=== PATIENT | female | born 1990 | race Caucasian/White ===

== ENCOUNTER 2019-03-01 13:23 | Outpatient (RCR) | payer OTHER, SELFPAY ==
[2019-02-23 13:49] LABS: Hematocrit 34.6 % (37.0-47.0); Hemoglobin 11.5 g/dL (12.0-15.0)
[2019-02-23 13:59] LABS: Glucose 1 Hour PP 50gm Dose 110 mg/dL
[2019-02-23 14:38] LABS: HIV 1/2 Ab P24 Ag Result Negative (Negative)
[2019-02-25 11:45] LABS: Rapid Plasma Reagin Non-Reactive (NonReactive)
[2019-03-03] MEDS: RHO(D) IMMUNE GLOBULIN 300 MCG SYRINGE IM (08:41)
== END 2019-05-24 23:59 | disposition home or self-care (01) ==
LOC: ANHLAB 13:23
PROVIDERS: Visit Provider Obstetrics & Gynecology
DX: Z36.89 Encounter for other specified antenatal screening (principal); Z29.13 Encounter for prophylactic Rho(D) immune globulin; O36.0990 Maternal care for other rhesus isoimmunization, unspecified trimester, not applicable or unspecified; Z3A.00 Weeks of gestation of pregnancy not specified
CPT/HCPCS: 36415; 82947; 85014; 85018; 86592; 86703; 90384; 96372; G0432; J2790

== ENCOUNTER 2019-05-03 14:07 | Outpatient (CLI) | payer OTHER, SELFPAY ==
[2019-05-03 15:21] LABS: Hematocrit 35.9 % (37.0-47.0); Mean Corpuscular HGB Conc 33.4 g/dl (32-36); Mean Corpuscular Hemoglobin 28.9 pg (26-34); Mean Corpuscular Volume 86.5 fl (80-100); Mean Platelet Volume 11.1 fl (7.4-10.4); Platelet Count Result 213 k/mm3 (150-375); Red Blood Count 4.15 M/mm3 (4.2-5.4); Red Cell Distribution Width 13.2 % (11.5-14.5); White Blood Count 9.8 K/mm3 (4.5-10.0)
[2019-05-04 10:29] LABS: Rapid Plasma Reagin Non-Reactive (NonReactive)
== END 2019-05-03 14:08 | disposition home or self-care (01) ==
PROVIDERS: PCP Physician Assistant; Visit Provider Obstetrics & Gynecology
DX: Z34.93 Encounter for supervision of normal pregnancy, unspecified, third trimester (principal); Z3A.00 Weeks of gestation of pregnancy not specified
CPT/HCPCS: 36415; 85027; 86592; 86850; 86880; 86900; 86901; 86902

== ENCOUNTER 2019-05-04 10:01 | Inpatient (IN) | payer OTHER, SELFPAY ==
--- NOTE | 2019-04-24 13:58 | PC.NURSE ---
VERIFIED WITH OR SCHEDULE AND PATIENT -C/S ON 05/04/19 AT 1200 PATIENT GIVEN REQUISITION FOR LAB DRAW ON 05/03/19 PATIENT STATES BABY HAS SLIGHT ABNORMAL BLOOD FLOW IN THE BRAIN ACCORDING TO LAST ULTRASOUND DONE
[2019-05-04] VITALS (52 sets, daily range): BP systolic 51–125; BP diastolic 34–82; PULSE 63–94; RESP 14–18; TEMP 35.3–36.4; O2SAT 95–100; BMI 40.8
--- NOTE | 2019-05-04 10:01 | LDADM ---
This patient, Sarita Jacob, was admitted to Labor/Delivery/Recovery 119 on 05/04/19 at 10:01. Plans for labor, pain management and were discussed with patient. Patient/family oriented to hospital policies and general routines including ID bracelet, bed and alarms, visiting hours, pain management, procedures, bathroom and other care routines, personal items, smoking policy, room service/diet and guest tray routines, infant security routines, and visiting hours. Patient/Family are encouraged to report perceived risks to care and to ask questions if they do not understand what they are told or what they should do. See OBIX for further documentation.
[2019-05-04] MEDS: LACTATED RINGERS 1,000 ML 125 ML IV CONT (10:54)
--- NOTE | 2019-05-04 11:19 | WPDANESEPPF ---
Anes - Initial Pre Proc Eval Procedure: Operation Date: 05/04/19 12:00 Proposed Procedures p Repeat Section - Ileana Kennedy MD Date/Time: 05/04/19 11:19 Surgeon: Ileana Kennedy MD Pre Op Diagnosis: Scheduled Patient Data Age: 28 Gender: F Height: 1.52 m Weight: 95 kg Last Vital Signs Pulse 90 05/04/19 11:16 BP 123/81 05/04/19 11:16 Allergies Allergy/AdvReac Type Severity Reaction Status Date / Time No Known Allergies Allergy Unknown Verified 04/24/19 13:37 Home Medications Medication Instructions Recorded Confirmed Type PNV cmb#95-ferrous fumarate-FA 1 tablet PO DAILY 04/24/19 04/24/19 History [] Patient hx anesthesia problems: none Family hx anesthesia problems: none PMFSH Past Medical History Medical History (Updated 05/03/19 @ 10:16 by Garett Alvares DO) Migraine Surgical History Surgical History (Updated 05/03/19 @ 10:16 by Garett Alvares DO) History of x4 Family History Family History (Updated 04/24/19 @ 13:39 by Torrie Roa RN) Sibling Diabetes mellitus Grandparent Cancer Social History Social History Smoking status: Never smoker Second hand tobacco smoke exposure: Yes Substance use: never Spiritual care concerns: No Anes - Eval Final PreProcedure Day of Procedure 05/04/19 11:19 Patient weight: morbidly obese Heart: regular rate and rhythm Lungs: clear to auscultation and normal air movement Airway: Mallampati scale class II Neurological: alert and oriented Last oral intake: >/= 8 hours ASA classification: III Emergent: no Anesthetic plan: proceed Anesthesia type and monitoring: regional spinal and standard monitoring Informed Consent: The patient's anesthetic plan and its attendant risks and benefits were discussed with the patient/family/POA. Questions were solicited and answers provided to the satisfaction of the patient/family/POA.
--- NOTE | 2019-05-04 11:48 | PM.IMHP ---
H&P: HPI History of Present Illness Chief complaint: Scheduled Narrative: Sarita Jacob is a 28 year old multiparous female at 37 weeks gestation with 3 prior deliveries. She presents for repeat delivery. She has a growth restricted infant. She has been monitored closely. She has been monitored closely. It was recommended that she would be delivered at 37 weeks. She denies any loss of fluid, vaginal bleeding, contractions. She reports good movement. She denies any headache or blurry vision. Review of Systems Constitutional: Constitutional: Reports no additional constitutional complaints, Denies fatigue, Denies headache(s), Denies lethargy and Denies weakness Eyes: Eyes: Reports no additional eye complaints, Denies blurry vision and Denies photophobia ENT: Reports as per HPI, Denies headache(s) and Denies neck pain Cardiovascular: Cardiovascular: Denies chest pain, Denies diaphoresis, Denies leg edema, Denies palpitations and Denies dyspnea Respiratory: Respiratory: Denies hemoptysis, Denies dyspnea and Denies wheezing Gastrointestinal: Gastrointestinal: Denies abdominal pain, Denies melena, Denies bloating, Denies hematochezia, Denies nausea and Denies vomiting Genitourinary: Genitourinary: Reports no additional female genitourinary complaints Musculoskeletal: Musculoskeletal: Denies joint swelling, Denies neck pain, Denies numbness and Denies stiffness Neurologic: Denies Abnormal speech present, Denies confusion, Denies headache(s), Denies numbness and Denies weakness Psychiatric: Psychiatric: Denies anxiety, Denies confusion, Denies depression, Denies homicidal ideation and Denies suicidal ideation Endocrine: Endocrine: Denies fatigue and Denies palpitations Allergic/Immunologic: Allergic/Immunologic: Denies wheezing FOR[facility]LY [facility] Past Medical History Medical History (Updated 05/04/19 @ 11:58 by Ileana Kennedy MD) Migraine Surgical History Surgical History (Updated 05/04/19 @ 11:58 by Ileana Kennedy MD) History of x4 Family History Family History (Updated 04/24/19 @ 13:39 by Torrie Roa RN) Sibling Diabetes mellitus Grandparent Cancer Social History Social History Smoking status: Never smoker Second hand tobacco smoke exposure: Yes Substance use: never Spiritual care concerns: No Meds Home Medications and Allergies Home Medications Medication Instructions Recorded Confirmed Type PNV cmb#95-ferrous fumarate-FA 1 tablet PO DAILY 04/24/19 04/24/19 History [] Allergies Allergy/AdvReac Type Severity Reaction Status Date / Time No Known Allergies Allergy Unknown Verified 04/24/19 13:37 Vital Signs Vital Signs - 24 hr 05/04/19 10:36 05/04/19 10:46 05/04/19 11:01 Pulse Rate 94 94 87 Blood Pressure 123/71 118/68 125/82 05/04/19 11:16 Pulse Rate 90 Blood Pressure 123/81 Exam Const: General: healthy appearing, comfortable and no acute distress; No confusion Orientation/consciousness: No confusion Eyes: Direct Ophthalmoscopy: No photophobia Resp: Auscultation: clear to auscultation bilaterally, no rales, no rhonchi and no wheezes Cardio: Rate: regular rate Heart sounds: no click, no murmurs and no rubs GI: Inspection: non-distended GI Palp: No abdominal tenderness Auscultation: normal bowel sounds Neuro: General: No confusion Speech: No Abnormal speech present Extrem: General: normal to inspection, no pedal edema and no calf tenderness Assessment and Plan Assessment and plan (1) IUGR (intrauterine growth restriction): Status: Acute (2) Previous delivery, antepartum condition or complication: Code(s): O34.219 - Maternal care for unspecified type scar from previous delivery Status: Acute Assessment and Plan: This patient is a 28-year-old multiparous female 37 weeks gestation with multiple previous deliveries. She has an IUGR infan
[2019-05-04] MEDS: LACTATED RINGERS 1,000 ML 999 ML IV CONT ×2 (11:52→12:30)
[2019-05-04] MEDS: ceFAZolin 2 GM/D5W 50 ML 2 GM/50 ML BAG IVPB (11:58)
--- NOTE | 2019-05-04 13:02 | P.OP_ITS ---
Procedure Note - Detailed Date of procedure: 05/04/19 Pre-op diagnosis: Scheduled Previous delivery, IUGR, Post-op diagnosis: same (With breech presentation) Procedure performed: Repeat low-transverse delivery Description of procedure: The patient was taken the operating room. She was prepped and draped in the dorsal supine position with leftward tilt after induction of spinal anesthetic. When anesthesia was found to be adequate a low- transverse skin incision was made and carried down to the level the fascia with the knife. The fascial incision was made at the midline with a scalpel. The fascial incision was extended laterally with Redd scissors. The fascia was tented upward superior and inferior with Evan clamps. The rectus muscles were dissected off bluntly. The rectus muscles at the midline. The preperitoneal fat was dissected bluntly at the superior aspect of the separate the rectus muscles. The peritoneal cavity was entered bluntly in the same area. The peritoneal incision was extended superior and inferior with good position of bladder. Bladder blade was inserted. A low-transverse incision was made on the uterus with the scalpel. It was carried down the level of the amniotic cavity with a knife. The amniotic cavity bluntly. The uterine incision was made laterally with blunt traction. The infant was delivered. The cord was clamped and cut. The was handed off to waiting pediatric staff. Cord bloods were obtained. The placenta was removed manually. The uterus was exteriorized. Uterus cleared of all clots and debris. Uterus closed in 0 Vicryl in a running locked fashion. An imbricating layer of 0 Vicryl was also placed on the to bolster the closure. Fallopian tube was grasped in the ampullary region with a Mary. It was raised away from the accompanying vein. A window was created in the broad ligament in this area of the tube. 0 Vicryl was used to ligate the proximal distal ends of the skeletonize region of the tube. The segment of the tube was resected with scissors. The cut surfaces were cauterized. On the contralateral side the procedure was performed identically. The uterus was returned to the abdomen. The gutters were cleared of all clots and debris. The fascia was closed 0 Vicryl in a running fashion. Subcutaneous tissue was irrigated and bleeding areas were cauterized. The skin was closed with subcuticular absorbable margi. The incision was covered with derma avila. The patient tolerated the procedure well. She was taken recovery room stable condition. Sponge, lap, needle counts were correct x2. Anesthesia: spinal Surgeon: Ileana Kennedy MD Estimated blood loss (mL): 400 Drains: No Packing: No Pathology: none sent Complications: No immediate complications Condition: stable Disposition: floor Findings: Bicornuate uterus, normal maternal anatomy. Thickened scar tissue in the abdominal wall, adhesions between the uterus and the anterior abdominal wall. Small for gestational age infant with typical Apgars
--- NOTE | 2019-05-04 14:00 | PC.NURSE ---
BP RETAKEN WITH PT'S ARM STRAIGHTENED. PT DENIES ANY SYMPTOMS OF HYPOTENSION. PREVIOUS BPS TAKEN WITH PT'S ARM BENT DUE TO .
[2019-05-04] MEDS: LORATADINE 10 MG TABLET PO (15:04)
--- NOTE | 2019-05-04 15:30 | PC.NURSE ---
Patient transferred to post room #291 via wheelchair. Support person present. Oriented to unit, room, information board, rooming in, admission packet and security measures. Patient verbalizes understanding.
--- NOTE | 2019-05-04 17:20 | PCDIET ---
Offered to assist mother with , Reported blood glucose and advised should start feeding as soon as possible and will need to be supplemented after . Mother wishes to be bottle fed now.
[2019-05-05] MEDS: ACETAMINOPHEN 325 MG TABLET 650 MG PO (02:11)
[2019-05-05 03:05] VITALS: BP 109/68; PULSE 98; RESP 16; TEMP 36.6
[2019-05-05 05:55] LABS: Basophils Percent Auto 0.4 % (0.2-1.2); Eosinophils Absolute Auto 0.1 K/mm3 (0-0.3); Eosinophils Percent Auto 1.3 % (0-4.4); Hematocrit 31.3 % (37.0-47.0); Hemoglobin 10.4 g/dL (12.0-15.0); Immature Granulocyte Absolute 0.02 K/mm3 (0.00-0.031); Immature Granulocyte Percent A 0.2 % (0-0.5); Lymphocytes Absolute Auto 1.46 K/mm3 (0.9-3.2); Lymphocytes Percent Auto 17.9 % (18.3-44.2); Mean Corpuscular HGB Conc 33.2 g/dl (32-36); Mean Corpuscular Hemoglobin 28.5 pg (26-34); Mean Corpuscular Volume 85.8 fl (80-100); Monocytes Absolute Auto 0.5 K/mm3 (0.1-0.6); Monocytes Percent Auto 6.4 % (2.6-8.5); Neutrophils Percent Auto 73.8 % (45.5-73.1); Platelet Count Result 162 k/mm3 (150-375); Red Blood Count 3.65 M/mm3 (4.2-5.4); Red Cell Distribution Width 13.2 % (11.5-14.5); White Blood Count 8.2 K/mm3 (4.5-10.0)
[2019-05-05] MEDS: IBUPROFEN 600 MG TABLET PO ×3 (06:12→22:18)
[2019-05-05] MEDS: SIMETHICONE 80 MG TAB.CHEW PO ×5 (06:12→22:18)
[2019-05-05 08:00] VITALS: BP 114/67; PULSE 91; RESP 16; RESP 18; TEMP 36.4; O2SAT 100
--- NOTE | 2019-05-05 08:13 | WPDANLDPN2 ---
Anes-Prog Note L&D Date/Time: 05/05/19 08:13 Comfortable throughout: section Neuraxial method: spinal Epidural/Spinal procedure site: clean & non-tender Neuro status: Neuro function grossly intact. Cardiovascular status: normal Respiratory status: normal Airway patency: baseline Mental status: baseline Post-Op hydration status: normal Vital Signs: Last Vital Signs Temp 97.9 F 05/05/19 03:05 Pulse 98 05/05/19 03:05 Resp 16 05/05/19 03:05 BP 109/68 05/05/19 03:05 Pulse Ox 98 05/04/19 20:08 I/O: Intake & Output 05/04/19 05/05/19 05/05/19 23:59 07:59 15:59 Intake Total 800 Output Total 300 600 Balance 500 -600 Patient feedback: Patient satisfied with anesthetic care.
--- NOTE | 2019-05-05 08:14 | WPDANLDNPN2 ---
Anes-Prog Note L&D-Neuraxial Date/Time: 05/05/19 08:14 Neuraxial medications: intrathecal PF morphine Opiod-related complaints: none Patient feedback: Patient satisfied with post-operative pain management.
[2019-05-05] MEDS: MULTIVIT/MIN/PREN/FOL AC/IRON TABLET 1 TAB PO (09:16)
[2019-05-05] MEDS: DOCUSATE SODIUM 100 MG CAPSULE PO ×2 (09:16→17:55)
[2019-05-05] MEDS: POLYSACCHARIDE IRON COMPLEX 150 MG CAPSULE PO (09:16)
[2019-05-05 11:40] VITALS: BP 125/73; PULSE 95; RESP 16; TEMP 36.4; O2SAT 99
[2019-05-05 12:00] VITALS: BP 110/68; PULSE 74; RESP 16; RESP 18; TEMP 36.8; O2SAT 100
--- NOTE | 2019-05-05 12:39 | P.PNOB_ITS ---
OB - PN: Subj Subjective Date/time seen: 05/05/19 12:39 Patient comments: no complaints, pain well controlled and tolerating diet OB - PN: Obj Data Labs CBC & Chem 7: 05/05/19 05:14 Labs: Laboratory Results - last 24 hr 05/05/19 05:14 WBC 8.2 RBC 3.65 L Hgb 10.4 L Hct 31.3 L MCV 85.8 MCH 28.5 MCHC 33.2 RDW 13.2 Plt Count 162 MPV 11.0 H Immature Gran % (Auto) 0.2 Neut % (Auto) 73.8 H Lymph % (Auto) 17.9 L [place] % (Auto) 6.4 Eos % (Auto) 1.3 Baso % (Auto) 0.4 Lymph # (Auto) 1.46 [place] # (Auto) 0.5 Eos # (Auto) 0.1 Baso # (Auto) 0.0 Abs Immat Gran (auto) 0.02 Absolute Neuts (auto) 6.0 Absolute Nucleated RBC 0.0 Nucleated RBC % 0.0 OB - PN A/P Plan day: 1 Comments: Post Op LTCS - no problems, routine recovery Time Spent With Patient Time: Total time spent is greater than 50% in coordination of care (as documented) at patient's floor/unit and/or counseling patient: Exam Const: General: cooperative, healthy appearing, comfortable and no acute distress Resp: Auscultation: no crackles, no rales, no rhonchi and no wheezes Cardio: Rhythm: regular rhythm Heart sounds: no click and no murmurs GI: Inspection: non-distended Auscultation: normal bowel sounds Extrem: General: normal to inspection, no pedal edema and no calf tenderness
[2019-05-05 19:10] VITALS: BP 110/70; PULSE 90; RESP 16; TEMP 36.7
[2019-05-06] MEDS: SIMETHICONE 80 MG TAB.CHEW PO (05:23)
[2019-05-06] MEDS: IBUPROFEN 600 MG TABLET PO ×2 (05:23→12:52)
--- NOTE | 2019-05-06 07:48 | PM.OBPNVD ---
OB - PN: Subj Subjective Date/time seen: 05/06/19 07:48 Patient comments: no complaints, pain well controlled, tolerating diet, flatus present and other (Ambulating and voiding without problems. Lochia similar to menses) baby status: doing well OB - PN: Obj Data Labs CBC & Chem 7: 05/05/19 05:14 OB - PN A/P Plan day: 2 (s/p C section, doing well) Plan: routine care Time Spent With Patient Time: Total time spent is greater than 50% in coordination of care (as documented) at patient's floor/unit and/or counseling patient: Exam Const: General: no acute distress Resp: Auscultation: clear to auscultation bilaterally Cardio: Rate: regular rate Rhythm: regular rhythm GI: Inspection: non-distended, incision (Intact without erythema, drainage, or induration) and other (Fundus firm and nontender below umbilicus) GI Palp: Yes abdominal tenderness (appropriate) and Yes Soft to palpation Extrem: General: no edema
[2019-05-06] MEDS: DOCUSATE SODIUM 100 MG CAPSULE PO (08:19)
[2019-05-06] MEDS: MULTIVIT/MIN/PREN/FOL AC/IRON TABLET 1 TAB PO (08:19)
[2019-05-06 08:30] VITALS: BP 107/68; PULSE 89; RESP 14; TEMP 36.7; O2SAT 97
[2019-05-06] MEDS: TETANUS,DIPHTHERIA,AC PERTUSSIS ADULT 0.5 ML (ADACEL) IM (14:47)
[2019-05-07 10:17] VITALS: BP 131/88; PULSE 100; RESP 18
--- NOTE | 2019-06-04 10:45 | PM.OBDSVD ---
DS: Diagnosis Admitting Diagnosis Admitting Diagnosis: Encounter for supervision of normal , unspecified, third trimester OB - DS: Summary OB Procedures : None OB Procedures Intrapartum: OB Procedures: : None Peripartum Data Infant Delivery Method: Section Laceration description: None Procedures: Procedures Operation Date: 05/04/19 12:00 Actual Procedures Side Surgeon p Section Not Applicable Ileana Kennedy MD complications: none Status at Discharge Functional status at discharge: independent ambulation Time Spent with Patient Time attestation: Total time spent providing and/or coordinating discharge services: Time spent: Less than 30 minutes DS: Data Data Completed and Pending Completed studies during hospitalization: Pending at discharge 05/04/19 12:23 Surgical [PTH] Routine Discharge Plan Discharge Attending physician on discharge: Ileana Kennedy Consulting providers: Garett Alvares Discharging Clinician: Theresa Wiley Patient Disposition: Home, Self-Care Activity: may shower and pelvic rest Diet: regular Wound Care Instructions: incision open to air Discharge Instructions: Education: Mom and Baby Guide Given to: Mother Follow-Up: Call your delivering provider's office for an appointment to be seen in: 1 Week for incision check then 6 weeks Mom and baby should come to the [facility] for the follow-up appointment. Appointment Date/Time: May 08, 2019 at 9:00 am What to expect at your follow-up visit: Blood Pressure Check Physical Assessment Call [phone] if you are unable to keep your appointment time. BREAST CARE: 1. Wear a snug supportive bra. 2. For engorgement discomfort: Bottle Feeding: A. May apply ice packs ABDOMINAL INCISION: (if applicable) 1. Allow incision to air dry 2. Do NOT use lotions for powders on your incision 3. When showering, allow soap and water to run over the incision, but do not wash incision PERINEAL CARE: 1. Until bleeding stops, use your carlos bottle after urinating 2. Change your pad frequently throughout the day 3. You may take sitz baths several times a day (fill your bathtub with warm water and soak for 20 minutes.) Do NOT bathe in the water 4. No tub baths until seen by your physician - You may shower ACTIVITY: 1. Rest as much as possible. 2. Do not exercise or lift anything heavier than your baby (such as laundry or other children.) 3. Avoid stairs or driving as much as possible. 4. Do not put anything into the vagina. No douching, tampons, or sexual activity until seen by physician. NOTIFY PHYSICIAN IF YOU HAVE ANY QUESTIONS OR IF ANY OF THE FOLLOWING SYMPTOMS OCCUR: 1. If your incision becomes red, swollen, or more painful than what you have experienced in the hospital. 2. If your vaginal bleeding becomes foul smelling. 3. If your vaginal bleeding becomes more heavy than a period or if your bleeding changes from pink to bright red. However, you may pass an occasional walnut-sized clot once or twice for the first week . 4. If you experience a sharp, shooting pain in you calves. 5. If you discover a hard, reddened area on your breast or if you experience flu-like symptoms. DIET: 1. Eat regular, well-balanced meals. 2. Drink plenty of fluids daily. Patient Instructions: Antibiotic Form Stand Alone Forms: General Discharge Information Follow-up/Referrals: Ileana Kennedy MD [Physician] - 1 Week Discharge Medications: New hydrocodone-acetaminophen 5-325 mg Tablet 1 tab PO Q4H PRN (Reason: Moderate Pain (4-6)) Qty: 30 RF: 0 ibuprofen 600 mg Tablet 600 mg PO Q6H PRN (Reason: Cramping) Qty: 60 RF: 0 Continued PNV cmb#95-ferrous fumarate-FA [] 28 mg iron- 800 mcg Tablet 1 tablet PO DAILY RF: 0 Date of admission: 05/04/19 10:01 Prim
== END 2019-05-06 16:20 | disposition home or self-care (01) | DRG 540 ==
LOC: ANHOB2 05-06 13:49 → ANHLDR 05-07 12:00 → ANHOB2 05-07 12:00
PROVIDERS: Admitting Provider Obstetrics & Gynecology; PCP Physician Assistant; Visit Provider Obstetrics & Gynecology
PROC: 10D00Z1 Extraction of Products of Conception, Low, Open Approach (ICD-10-PCS; CPT 59514; principal; 2019-05-04 12:00)
DX: O34.211 Maternal care for low transverse scar from previous cesarean delivery (principal); Z37.0 Single live birth; Z3A.38 38 weeks gestation of pregnancy; O99.824 Streptococcus B carrier state complicating childbirth; O36.5930 Maternal care for other known or suspected poor fetal growth, third trimester, not applicable or unspecified; O99.214 Obesity complicating childbirth; E66.01 Morbid (severe) obesity due to excess calories; O32.1XX0 Maternal care for breech presentation, not applicable or unspecified
CPT/HCPCS: 36415; 85025; 88307; 90715; A9270; J0131; J0690; J1200; J2274; J2405; J2590; J7120